=== PATIENT | female | born 1985 | race Caucasian/White ===

== ENCOUNTER 2022-01-27 08:17 | Emergency (ER) | payer MEDICAID ==
[~2022-01-27] VITALS: Ht 160 cm; Wt 59.1 kg
[~2022-01-27 08:17] MED LIST: ALBU8.5H17 IH; LOPE1TAB46 PO; ONDA4TAB6 PO
[2022-01-27 08:21] VITALS: BP 125/102
[2022-01-27] MEDS ORDERED: ibuprofen tablet 400 MG TABLET PO ONE (09:25)
--- NOTE | 2022-01-27 09:53 | NUR ---
ATTEMPT TO PLACE JETHRO WRAP AND POST OP SHOW BUT NOT IN ROOM. PER ER REG, PT HAS LEFT.
== END 2022-01-27 09:57 | disposition home or self-care (01) ==
LOC: ER 08:17
DX: S92.255A Nondisplaced fracture of navicular [scaphoid] of left foot, initial encounter for closed fracture (principal); M79.672 Pain in left foot; M79.671 Pain in right foot; F31.9 Bipolar disorder, unspecified; F12.90 Cannabis use, unspecified, uncomplicated; F15.90 Other stimulant use, unspecified, uncomplicated; Z88.0 Allergy status to penicillin; Z79.899 Other long term (current) drug therapy; X58.XXXA Exposure to other specified factors, initial encounter; Y93.89 Activity, other specified; Y92.89 Other specified places as the place of occurrence of the external cause; Y99.8 Other external cause status
CPT/HCPCS: 73630; 99283

== ENCOUNTER 2022-08-30 11:30 | Emergency (ER) | payer MEDICAID ==
[~2022-08-30] VITALS: Ht 160 cm; Wt 92.8 kg
[2022-08-30 11:42] VITALS: BP 161/110
== END 2022-08-30 12:46 | disposition home or self-care (01) ==
LOC: ER 11:30
DX: F15.10 Other stimulant abuse, uncomplicated (principal); F12.10 Cannabis abuse, uncomplicated; F31.9 Bipolar disorder, unspecified; Z79.899 Other long term (current) drug therapy; Z88.0 Allergy status to penicillin
CPT/HCPCS: 99281

== ENCOUNTER 2023-05-28 09:34 | Emergency (ER) | payer MEDICAID | END 2023-05-28 12:43 | disposition left against medical advice (07) | LOC: ER 09:35 | DX: K08.89 Other specified disorders of teeth and supporting structures (principal); Z53.21 Procedure and treatment not carried out due to patient leaving prior to being seen by health care provider ==